=== PATIENT | female | born 1960 | race Caucasian/White ===

== ENCOUNTER 2017-06-11 19:57 | Emergency (ER) | payer OTHER ==
[2017-06-11] MEDS ORDERED: NS 1,000 ML IV ONE (20:29)
--- NOTE | 2017-06-11 20:29 | EDPHY ---
H & P Time Seen by Provider: 06/11/17 20:28 HPI/ROS: Chief complaint. Possible pancreatitis HPI. 56-year-old female visiting from [place] knows it is increased heart rate with walking. They are she and her arrive from [place] 3 days ago. She tells me she has chronic pancreatitis however she does not have any abdominal pain. Her symptoms are fast heart rate and present only when walking. When she is lying down and sitting she has no symptoms. She has no abdominal pain. Slight nausea without vomiting. Denies chest discomfort or shortness of breath but she says she feels"inflamed"in the left upper abdomen and chest. No fever cough. No unusual leg pain or swelling. ROS Constitutional. no fever/chills, no weakness Eyes. no problems with vision ENT. no sore throat, no nasal drainage Cardiovascular. Fast heart rate Respiratory. no shortness of breath, no cough Abdominal. No abdominal pain but nausea . no problems urinating MS. no calf pain/swelling, no neck/back pain, no joint pain Skin. no rash Lymph. no swollen glands Neuro. no headache, no dizziness, no difficulty walking or with speech Past Medical/Surgical History: Chronic pancreatitis, MS, parathyroid removed, cholecystectomy Social History: , nonsmoker, no alcohol Smoking Status: Never smoked Physical Exam: General Appearance: Alert well-developed female no distress vital signs are stable Eyes: Pupils equal and round no pallor or injection. ENT, Mouth: Mucous membranes are moist. Respiratory: There are no retractions, lungs are clear to auscultation. Cardiovascular: Regular rate and rhythm. Gastrointestinal: Abdomen is soft and nontender, no masses, bowel sounds normal. Neurological: Awake and alert, sensory and motor exams grossly normal. Skin: Warm and dry, no rashes. Musculoskeletal: Neck is supple nontender. Extremities symmetrical, full range of motion. Psychiatric: Patient is oriented X 3, there is no agitation. Constitutional: Initial Vital Signs Temperature (C) 36.5 C 06/11/17 20:15 Heart Rate 69 06/11/17 20:15 Respiratory Rate 18 06/11/17 20:15 Blood Pressure 154/85 H 06/11/17 20:15 O2 Sat (%) 97 06/11/17 20:15 O2 Delivery Mode Room Air Allergies/Adverse Reactions: glatiramer (copolymer 1) [From [employer]] Allergy (Verified 06/11/17 20:18) metronidazole [From Flagyl] Allergy (Verified 06/11/17 20:18) Home Medications: Medication Instructions Recorded Calcium Citrate [Citracal (OTC)] 200 mg PO 06/11/17 Cholecalciferol (Vitamin D3) 1,000 unit PO 06/11/17 [Vitamin D3] Diclofenac Sodium [Pennsaid] 2 gm TP 06/11/17 Valacyclovir HCl [Valtrex] 1,000 mg PO 06/11/17 Medical Decision Making - Diagnostics EKG Interpretation: EKG interpreted by me shows normal sinus rhythm normal interval and and left axis deviation. QRS is normal there is no significant ST elevation or depression. No arrhythmia. The rate is 65 Procedures: IV normal saline ED Course/Re-evaluation: On re-evaluation at 9:45 p.m. Patient is stable. Her heart rate 64. She is conversational. She tells me she has no chest discomfort or trouble breathing. She tells me her heart rate is normal when she is lying down and normal when she is sitting. She tells me her heart rate goes up when she walks. Again she is visiting from [place]. I think this is likely altitude cause of tachycardia. I find no evidence for acute coronary syndrome. She has a normal troponin and normal EKG. She has a negative D-dimer. She is not short of breath. There is no fever or cough. I do not think she has pneumonia. On exam her lungs are clear. She is speaking in full sentences. Patient was concerned that she had pancreatitis though she has no abdominal pain and no vomiting. Her complaint is fast heart rate when she walks. Her lipase is normal. - Data Points Laboratory Results: Laboratory Results 06/11/17 20:38 06/11/17 20:38 06/11/17 06/11/17 06/11/17 20:38 20:38 20:38 WBC 7.33 10^3/uL 10^3/uL (3.80-9.50) RBC 5.36 10^6/uL H 10^6/uL (4.18-5.33) Hgb 16.1 g/dL g/dL (12.6-16.3) Hct 46.3 % % (38.0-47.0) MCV 86.4 fL fL (81.5-99.8) MCH 30.0 pg pg (27.9-34.1) MCHC 34.8 g/dL g/dL (32.4-36.7) RDW 12.9 % % (11.5-15.2) Plt Count 257 10^3/uL 10^3/uL (150-400) MPV 10.1 fL fL (8.7-11.7) Neut % (Auto) 60.0 % % (39.3-74.2) Lymph % (Auto) 32.3 % % (15.0-45.0) Barren % (Auto) 6.3 % % (4.5-13.0) Eos % (Auto) 0.8 % % (0.6-7.6) Baso % (Auto) 0.5 % % (0.3-1.7) Nucleat RBC Rel Count 0.0 % % (0.0-0.2) Absolute Neuts (auto) 4.39 10^3/uL 10^3/uL (1.70-6.50) Absolute Lymphs (auto) 2.37 10^3/uL 10^3/uL (1.00-3.00) Absolute Monos (auto) 0.46 10^3/uL 10^3/uL (0.30-0.80) Absolute Eos (auto) 0.06 10^3/uL 10^3/uL (0.03-0.40) Absolute Basos (auto) 0.04 10^3/uL 10^3/uL (0.02-0.10) Absolute Nucleated RBC 0.00 10^3/uL 10^3/uL (0-0.01) Immature Gran % 0.1 % % (0.0-1.1) Immature Gran # 0.01 10^3/uL 10^3/uL (0.00-0.10) D-Dimer < 0.27 ug/mLFEU ug/mLFEU (0.00-0.50) Sodium 137 mEq/L mEq/L (135-145) Potassium 3.7 mEq/L mEq/L (3.5-5.2) Chloride 99 mEq/L mEq/L (97-110) Carbon Dioxide 28 mEq/l mEq/l (22-31) Anion Gap 10 mEq/L mEq/L (8-16) BUN 17 mg/dL mg/dL (7-23) Creatinine 0.7 mg/dL mg/dL (0.6-1.0) Estimated GFR > 60 Glucose 85 mg/dL mg/dL (70-100) Calcium 9.3 mg/dL mg/dL (8.5-10.4) Troponin I < 0.012 ng/mL ng/mL (0.000-0.034) Lipase 200 IU/L IU/L (23-300) Medications Given: Discontinued Medications Sodium Chloride (Ns) 1,000 mls @ 0 mls/hr IV EDNOW ONE; Wide Open PRN Reason: Protocol Stop: 06/11/17 20:30 Last Admin: 06/11/17 20:38 Dose: 1,000 mls Departure - Departure Disposition: Home, Routine, Self-Care Clinical Impression: Altitude illness Qualifiers: Encounter type: initial encounter Qualified Code(s): T70.29XA - Other effects of high altitude, initial encounter Condition: Good Instructions: Mountain Sickness (ED) Additional Instructions: Drink plenty of fluids and stay hydrated. Return for worsening breathing, chest discomfort, abdominal pain. Recheck in 1 day if not improving. Referrals: NONE *PRIMARY CARE P,. [Unknown] - As per Instructions
[2017-06-11 20:48] LABS: PLATELET COUNT 257 10^3/uL (150-400)
--- NOTE | 2017-06-11 21:37 | CPEKG ---
Heart Rate: 64 RR Interval: 938 P-R Interval: 160 QRSD Interval: 92 QT Interval: 440 QTC Interval: 454 P Saline: 51 QRS Saline: 4 T Wave Saline: 38 EKG Severity - NORMAL ECG - EKG Impression: SINUS RHYTHM Electronically Signed By: Santosh Bangura 11-Jun-2017 21:42:57
[2017-06-11 22:31] VITALS: BP 161/87
== END 2017-06-11 22:31 | disposition home or self-care (01) ==
DX: T70.29XA Other effects of high altitude, initial encounter (principal); E86.9 Volume depletion, unspecified

== ENCOUNTER 2017-06-15 12:14 | Emergency (ER) | payer OTHER ==
[2017-06-15] MEDS ORDERED: HYDROCODONE/APAP 5/325 TAB PO ONE (12:36)
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
[2017-06-15 15:14] VITALS: BP 154/87
== END 2017-06-15 15:12 | disposition home or self-care (01) ==
PROC: 0PSHXZZ Reposition Right Radius, External Approach (ICD-10-PCS; principal; 2017-06-15)
DX: S52.502A Unspecified fracture of the lower end of left radius, initial encounter for closed fracture (principal); V18.4XXA Pedal cycle driver injured in noncollision transport accident in traffic accident, initial encounter; Y92.410 Unspecified street and highway as the place of occurrence of the external cause; Y99.8 Other external cause status; Y93.55 Activity, bike riding
CPT/HCPCS: A4565

== ENCOUNTER 2017-06-16 04:14 | Emergency (ER) | payer OTHER ==
[2017-06-16] MEDS ORDERED: ACETAMINOPHEN 500 MG TAB PO ONE (05:11)
--- NOTE | 2017-06-16 05:15 | EDPHY ---
H & P Stated Complaint: numbness in left hand- plint placed on few hours ago Time Seen by Provider: 06/16/17 05:03 HPI/ROS: HPI: The patient presents with left index finger numbness which has been present for the last several hours. Yesterday, she sustained a distal radius fracture which required close reduction in the emergency department and she was placed in a thumb spica sugar-tong splint. She says overnight she began to develop numbness of her index finger and middle finger which did not improve with changes in position. She denies any coolness of the digit or increased pain. She is visiting from [place] and is due to fly back tomorrow. REVIEW OF SYSTEMS Constitutional: No fever, no chills. Skin: No rashes. Neurological: No headache. PMHx: Chronic pancreatitis, multiple sclerosis TRAUMA PHYSICAL General Appearance: Alert, no distress Neck: trachea midline Respiratory: Breathing comfortably Skin: No lacerations, No abrasion Extremities: Thumb spica splint in place with edema of the index and middle fingers, there is mild sensation intact to light touch though it is diminished, there is brisk capillary refill, fingers warm and she has full range of motion Neurological: A&Ox3 Source: Patient Exam Limitations: No limitations - Medical/Surgical History Hx Asthma: No Hx Chronic Respiratory Disease: No Hx Diabetes: No Hx Cardiac Disease: No Hx Renal Disease: No Hx Cirrhosis: No Hx Alcoholism: No Hx HIV/AIDS: No Hx Splenectomy or Spleen Trauma: No Other PMH: CHRONIC PANCREATITIS, MS, CHOLY, PARITHYROID REMOVED osteopenia, ortho surgeries. - Social History Smoking Status: Never smoked Constitutional: Initial Vital Signs Temperature (C) 36.6 C 06/16/17 04:18 Heart Rate 65 06/16/17 04:18 Respiratory Rate 20 06/16/17 04:18 Blood Pressure 124/85 H 06/16/17 04:18 O2 Sat (%) 95 06/16/17 04:18 O2 Delivery Mode Room Air Allergies/Adverse Reactions: glatiramer (copolymer 1) [From [employer]] Allergy (Verified 06/16/17 04:18) metronidazole [From Flagyl] Allergy (Verified 06/16/17 04:18) Home Medications: Medication Instructions Recorded Calcium Citrate [Citracal (OTC)] 200 mg PO 06/11/17 Cholecalciferol (Vitamin D3) 1,000 unit PO 06/11/17 [Vitamin D3] Diclofenac Sodium [Pennsaid] 2 gm TP 06/11/17 Valacyclovir HCl [Valtrex] 1,000 mg PO 06/11/17 oxyCODONE/APAP 5/325 [Percocet 1 - 2 tab PO Q4H PRN #10 tab 06/15/17 5/325 (*)] Medical Decision Making Procedures: SPLINT Procedure: Splint placement. A ortho glass sugar-tong splint was applied to the left arm by myself in the mechanical engineering technician. After application of the splint I returned and re-examined the patient. The splint was adequately immobilizing the joint and distal to the splint the patient's circulation and sensation was intact. Differential Diagnosis: This is a 56-year-old female who presents with numbness and tingling of her left 2nd and 3rd digits of her upper extremity. Yesterday she sustained a distal radius fracture with closed reduction performed and splinting in the emergency department. On exam, she has edema of the 2nd and 3rd digits with full range of motion, brisk capillary refill, warm hand. I suspect compression from the splint is the cause of her symptoms. I do not think she has compartment syndrome of the hand given good strength, warmth, brisk cap refill. In the emergency department we loosened her splint. However , after this her splint was not seated correctly on her arm and decision was made to remove it and place a sugar-tong splint. This helped with her symptoms and she had no further neurologic deficits. She will be discharged from the emergency department. - Data Points Medications Given: Discontinued Medications Acetaminophen (Tylenol) 1,000 mg PO EDNOW ONE Stop: 06/16/17 05:12 Last Admin: 06/16/17 05:29 Dose: Not Given Departure - Departure Disposition: Home, Routine, Self-Care Clinical Impression: Hand numbness, Distal radius fracture, left Condition: Good Instructions: Splint Care (ED) Additional Instructions: Please make sure to elevate your arm. You should use ice packs for 20 min at a time several times a day. I recommend you take Tylenol 1000 mg with ibuprofen 400 mg every 6 hr as needed for pain. Referrals: NONE *PRIMARY CARE P,. [Primary Care Provider] - As per Instructions
[2017-06-16 06:17] VITALS: BP 137/78
== END 2017-06-16 07:31 | disposition home or self-care (01) ==
DX: R20.0 Anesthesia of skin (principal); S52.502D Unspecified fracture of the lower end of left radius, subsequent encounter for closed fracture with routine healing; X58.XXXD Exposure to other specified factors, subsequent encounter